=== PATIENT | female | born 1990 | race Caucasian/White ===

== ENCOUNTER 2021-06-20 20:06 | Emergency (ER) | payer OTHER ==
[2021-06-20] MEDS ORDERED: Lactated Ringers 1,000 ML IV ONE (21:06)
[2021-06-20] MEDS ORDERED: Ondansetron 4 MG/2 ML SDV IVPUSH ONE (21:06)
[2021-06-20] MEDS ORDERED: Ketorolac 15 MG/ML SDV IVPUSH ONE (21:06)
[2021-06-20] MEDS ORDERED: Sodium Chloride 0.9% 10 ML Syringe FLUSH PRN (21:06)
--- NOTE | 2021-06-20 21:13 | EDM.PDOC ---
ED HPI GENERAL MEDICAL PROBLEM - General Chief Complaint: Fever Stated Complaint: COVID+/FEVER Time Seen by Provider: 06/20/21 20:11 - History of Present Illness INITIAL COMMENTS - FREE TEXT/NARRATIVE: Patient arrived to ED by private vehicle She tested positive for COVID-19 06/14/2021 Symptoms began about 2 days prior Endorses nausea, vomiting, body aches, cough, fever, intermittent headaches Symptoms including fever have persisted since onset States vomiting and diarrhea have gotten worse Endorses 3 episodes of vomiting today, and diarrhea "all day" Has had difficulty with oral intake, concerned that she is getting dehydrated Complains of feeling generally weak and lightheaded Past couple days has also had intermittent right abdominal pain Denies chest pain or dyspnea Treatments DISTRICT ADMINISTRATOR: Reports: Cold Therapy, Other (see below) Other Treatments DISTRICT ADMINISTRATOR: Advil and Dayquil - Related Data Allergies Allergy/AdvReac Type Severity Reaction Status Date / Time codeine Allergy Severe Nausea and Verified 06/20/21 21:21 Vomiting lisinopril Allergy Severe Facial Verified 06/20/21 21:25 Swelling Home Meds: Home Meds Escitalopram Oxalate [Lexapro] 1 tab PO DAILY 06/20/21 [History] Venlafaxine [Effexor XR] 150 mg PO DAILY 06/20/21 [History] hydroCHLOROthiazide [Hydrochlorothiazide] 1 tab PO DAILY 06/20/21 [History] Prochlorperazine Maleate 10 mg PO Q6H PRN #15 tablet 06/21/21 [Rx] Past Medical History HEENT History: Reports: None Cardiovascular History: Reports: None Respiratory History: Reports: None Gastrointestinal History: Reports: None Genitourinary History: Reports: None CHANGE LEAD History: Reports: None Musculoskeletal History: Reports: None Neurological History: Reports: None Psychiatric History: Reports: None Endocrine/Metabolic History: Reports: None Hematologic History: Reports: None Immunologic History: Reports: None Oncologic (Cancer) History: Reports: None Dermatologic History: Reports: None - Infectious Disease History Infectious Disease History: Reports: Chicken Pox - Past Surgical History Head Surgeries/Procedures: Reports: Other (See Below) HEENT Surgical History: Reports: Oral Surgery, Tonsillectomy GI Surgical History: Reports: None Musculoskeletal Surgical History: Reports: None Social & Family History - Tobacco Use Tobacco Use Status *Q: Never Tobacco User Second Hand Smoke Exposure: No - Caffeine Use Caffeine Use: Reports: None - Alcohol Use Days Per Week of Alcohol Use: 1 Number of Drinks Per Day: 1 Total Drinks Per Week: 1 - Recreational Drug Use Recreational Drug Use: No ED ROS GENERAL - Review of Systems Review Of Systems: See Below Free Text/Narrative/Comment: Constitutional - fever; malaise; anorexia; altered taste/smell Eyes - no eye pain; no visual disturbance ENT - no rhinorrhea; no congestion; no epistaxis Cardiovascular - no chest pain; lightheaded Respiratory - no shortness of breath; cough Gastrointestinal - abdominal pain; nausea; vomiting; diarrhea Genitourinary - no dysuria Musculoskeletal - no neck pain; no back pain; no extremity injury; myalgia Neurological - headache; no speech disturbance; no weakness ED EXAM, GENERAL - Physical Exam Exam: See Below Free Text/Narrative:: Constitutional - awake; alert; mild general distress Head - no facial swelling or weakness Eyes - extra ocular motion intact; conjunctiva normal ENT - no nasal deformity; no epistaxis; normal phonation Neck - no swelling Respiratory - normal respiratory effort; no crackles or wheezing; no stridor; mildly diminished breath sounds right base Cardiovascular - regular rhythm; normal rate; S1; S2; grade 1/6 systolic murmur GI/Abdomen - normal bowel sounds; soft; mild tenderness right mid abdomen; no rebound; no guarding; no mass Musculoskeletal - grossly normal strength and motion; no swelling or deformity Skin - warm; dry Neurologic - normal speech; no weakness Psychiatric - normal mood and affect; memory and attention normal Course - Vital Signs Text/Narrative:: . Considered etiologies included: Vomiting, diarrhea, COVID-19, gastroenteritis, dehydration, metabolic derangement, , UTI Symptoms and examination were discussed Investigations were initiated Empiric treatment was initiated with IV fluid infusion, ondansetron, and ketorolac At reevaluation she felt significantly better Results were discussed, and were unremarkable She tolerated oral fluid intake without further vomiting Symptomatic treatment and isolation recommendations were reviewed Patient was felt to be stable for outpatient follow-up Return precautions were provided Last Recorded V/S: Last Vital Signs Temp 37.0 C 06/20/21 20:38 Pulse 99 06/20/21 20:53 Resp 20 06/20/21 20:53 BP 137/92 H 06/20/21 20:53 Pulse Ox 94 L 06/20/21 20:53 - Orders/Labs/Meds Orders: Active Orders 24 hr Category Date Time Status Peripheral IV Insertion Adult [OM.PC] Stat Oth 06/20/21 21:06 Ordered Labs: Laboratory Tests 06/20/21 06/20/21 06/20/21 Range/Units 21:50 21:50 21:50 WBC 7.19 (3.98-10.04) K/mm3 RBC 4.76 (3.98-5.22) M/mm3 Hgb 14.1 (11.2-15.7) gm/dl Hct 42.7 (34.1-44.9) % MCV 89.7 (79.4-94.8) fl MCH 29.6 (25.6-32.2) pg MCHC 33.0 (32.2-35.5) g/dl RDW Std Deviation 47.7 H (36.4-46.3) fL Plt Count 294 (182-369) K/mm3 MPV 9.8 (9.4-12.3) fl Neut % (Auto) 73.5 H (34.0-71.1) % Lymph % (Auto) 19.9 (19.3-51.7) % Emm[place] % (Auto) 6.1 (4.7-12.5) % Eos % (Auto) 0.1 L (0.7-5.8) Baso % (Auto) 0.1 (0.1-1.2) % Neut # (Auto) 5.28 (1.56-6.13) K/mm3 Lymph # (Auto) 1.43 (1.18-3.74) K/mm3 Emmet # (Auto) 0.44 H (0.24-0.36) K/mm3 Eos # (Auto) 0.01 L (0.04-0.36) K/mm3 Baso # (Auto) 0.01 (0.01-0.08) K/mm3 Manual Slide Review Sodium 142 (136-145) mEq/L Potassium 3.4 L (3.5-5.1) mEq/L Chloride 104 (98-107) mEq/L Carbon Dioxide 25 (21-32) mEq/L Anion Gap 16.4 H (5-15) BUN 7 (7-18) mg/dL Creatinine 0.7 (0.55-1.02) mg/dL Est Cr Clr Drug Dosing 98.09 mL/min Estimated GFR (MDRD) > 60 (>60) mL/min BUN/Creatinine Ratio 10.0 L (14-18) Glucose 110 H (70-99) mg/dL Calcium 8.5 (8.5-10.1) mg/dL Total Bilirubin 0.3 (0.2-1.0) mg/dL AST 90 H (15-37) U/L ALT 197 H (14-59) U/L Alkaline Phosphatase 99 (46-116) U/L Total Protein 7.6 (6.4-8.2) g/dl Albumin 3.5 (3.4-5.0) g/dl Globulin 4.1 gm/dL Albumin/Globulin Ratio 0.9 L (1-2) Urine Color Yellow (Yellow) Urine Appearance Clear (Clear) Urine pH 7.0 (5.0-8.0) Ur Specific [place] 1.025 (1.005-1.030) Urine Protein 1+ H (Negative) Urine Glucose (UA) Negative (Negative) Urine Ketones Negative (Negative) Urine Occult Blood 2+ H (Negative) Urine Nitrite Negative (Negative) Urine Bilirubin Negative (Negative) Urine Urobilinogen 0.2 (0.2-1.0) Ur Leukocyte Esterase Negative (Negative) Urine RBC 10-20 H (0-5) /hpf Urine WBC 0-5 (0-5) /hpf Ur Squamous Epith Cells 0-5 (0-5) /hpf Urine Bacteria Few (FEW) /hpf Urine Mucus Few (FEW) /hpf Urine HCG, Qual (NEGATIVE) 06/20/21 Range/Units 21:50 WBC (3.98-10.04) K/mm3 RBC (3.98-5.22) M/mm3 Hgb (11.2-15.7) gm/dl Hct (34.1-44.9) % MCV (79.4-94.8) fl MCH (25.6-32.2) pg MCHC (32.2-35.5) g/dl RDW Std Deviation (36.4-46.3) fL Plt Count (182-369) K/mm3 MPV (9.4-12.3) fl Neut % (Auto) (34.0-71.1) % Lymph % (Auto) (19.3-51.7) % Emmet % (Auto) (4.7-12.5) % Eos % (Auto) (0.7-5.8) Baso % (Auto) (0.1-1.2) % Neut # (Auto) (1.56-6.13) K/mm3 Lymph # (Auto) (1.18-3.74) K/mm3 Emmet # (Auto) (0.24-0.36) K/mm3 Eos # (Auto) (0.04-0.36) K/mm3 Baso # (Auto) (0.01-0.08) K/mm3 Manual Slide Review Sodium (136-145) mEq/L Potassium (3.5-5.1) mEq/L Chloride (98-107) mEq/L Carbon Dioxide (21-32) mEq/L Anion Gap (5-15) BUN (7-18) mg/dL Creatinine (0.55-1.02) mg/dL Est Cr Clr Drug Dosing mL/min Estimated GFR (MDRD) (>60) mL/min BUN/Creatinine Ratio (14-18) Glucose (70-99) mg/dL Calcium (8.5-10.1) mg/dL Total Bilirubin (0.2-1.0) mg/dL AST (15-37) U/L ALT (14-59) U/L Alkaline Phosphatase (46-116) U/L Total Protein (6.4-8.2) g/dl Albumin (3.4-5.0) g/dl Globulin gm/dL Albumin/Globulin Ratio (1-2) Urine Color (Yellow) Urine Appearance (Clear) Urine pH (5.0-8.0) Ur Specific [place] (1.005-1.030) Urine Protein (Negative) Urine Glucose (UA) (Negative) Urine Ketones (Negative) Urine Occult Blood (Negative) Urine Nitrite (Negative) Urine Bilirubin (Negative) Urine Urobilinogen (0.2-1.0) Ur Leukocyte Esterase (Negative) Urine RBC (0-5) /hpf Urine WBC (0-5) /hpf Ur Squamous Epith Cells (0-5) /hpf Urine Bacteria (FEW) /hpf Urine Mucus (FEW) /hpf Urine HCG, Qual Negative (NEGATIVE) Meds: Medications Discontinued Medications Generic Name Dose Route Start Last Admin Trade Name Freq PRN Reason Stop Dose Admin Lactated Ringer's 1,000 mls @ 999 mls/hr 06/20/21 21:06 06/20/21 21:50 Ringers, Lactated IV 06/20/21 22:06 999 mls/hr .BOLUS ONE Administration Ketorolac Tromethamine 15 mg 06/20/21 21:06 06/20/21 21:50 Ketorolac 15 Mg/Ml Sdv IVPUSH 06/20/21 21:07 15 mg ONETIME ONE Administration Ondansetron HCl 4 mg 06/20/21 21:06 06/20/21 21:50 Ondansetron 4 Mg/2 Ml Sdv IVPUSH 06/20/21 21:07 4 mg ONETIME ONE Administration Sodium Chloride 10 ml 06/20/21 21:06 06/20/21 21:51 Sodium Chloride 0.9% 10 Ml Syringe FLUSH 10 ml ASDIRECTED PRN Administration Keep Vein Open Departure - Departure Time of Disposition: 00:40 Disposition: Home, Self-Care 01 Clinical Impression: COVID-19 virus infection, Gastroenteritis - Discharge Information *PRESCRIPTION DRUG MONITORING PROGRAM REVIEWED*: Not Applicable *COPY OF PRESCRIPTION DRUG MONITORING REPORT IN PATIENT JOSE LUIS: Not Applicable Prescriptions: Prochlorperazine Maleate 10 mg PO Q6H PRN #15 tablet PRN Reason: Nausea or GI distress Instructions: COVID-19: What to Do if You Are Sick - [facility] (10/28/2020) Referrals: Nataliia Eaton PA-C [Primary Care Provider] - Forms: ED Department Discharge Additional Instructions: Continue self-isolation for COVID-19 until: - symptoms are improving and fever has been absent for 48 hours - and at least 10 days have passed since symptoms began Return if condition worsens May resume general activity and light diet as tolerated If vomiting occurs, stop all intake for 30-60 minutes, then resume clear liquid sips, 2-3 every 10-15 minutes, and advance slowly as tolerated Continue usual medications May use PROCHLORPERAZINE as prescribed, as needed for nausea/vomiting May take LOPERAMIDE (Imodium) as needed for diarrhea, per product instructions Follow-up with primary care provider is recommended Sepsis Event Note (ED) - Evaluation Sepsis Screening Result: No Definite Risk - Focused Exam Vital Signs: Vital Signs Temp Pulse Pulse Resp BP Pulse Ox 06/20/21 20:53 99 20 137/92 H 94 L 06/20/21 20:38 37.0 C 97 97 18 144/91 H 93 L - My Orders Last 24 Hours: My Active Orders 06/20/21 21:06 Peripheral IV Insertion Adult [OM.PC] Stat - Assessment/Plan Last 24 Hours: My Active Orders 06/20/21 21:06 Peripheral IV Insertion Adult [OM.PC] Stat
== END 2021-06-21 00:56 | disposition home or self-care (01) ==
LOC: JD.ED 20:06
DX: U07.1 COVID-19 (principal); K52.9 Noninfective gastroenteritis and colitis, unspecified; Z88.5 Allergy status to narcotic agent; Z88.8 Allergy status to other drugs, medicaments and biological substances
CPT/HCPCS: 36415; 80053; 81001; 81025; 85025; 96374; 96375; 99284; J1885; J2405; J7120

== ENCOUNTER 2021-12-27 16:43 | Emergency (ER) | payer SELFPAY ==
[2021-12-27] MEDS ORDERED: LORazepam 2 MG/ML SDV IVPUSH ONE (17:08)
[2021-12-27] MEDS ORDERED: Sodium Chloride 0.9% 10 ML Syringe FLUSH PRN (17:08)
[2021-12-27] MEDS ORDERED: Alum Hydrox/Mag Hydrox/Simeth 30 ML, Lidocaine 2% 15 ML PO ONE ×2 (18:22)
== END 2021-12-27 19:23 | disposition home or self-care (01) ==
LOC: JD.ED 16:43
DX: R07.89 Other chest pain (principal); I10 Essential (primary) hypertension; E66.9 Obesity, unspecified; Z68.35 Body mass index [BMI] 35.0-35.9, adult; Z88.5 Allergy status to narcotic agent; Z88.8 Allergy status to other drugs, medicaments and biological substances
CPT/HCPCS: 36415; 71045; 80053; 84484; 85025; 85379; 93005; 96374; 99285; A9270; J2060; 93010

== ENCOUNTER 2022-04-10 13:16 | Emergency (ER) | payer BC ==
[2022-04-10] MEDS ORDERED: Sodium Chloride 0.9% 10 ML Syringe FLUSH PRN (13:50)
[2022-04-10] MEDS ORDERED: Sodium Chloride 0.9% 1,000 ML IV SCH (14:00)
[2022-04-10] MEDS ORDERED: Iopamidol 612 MG/ML 100 ML Bottle IVPUSH ONE (14:27)
[2022-04-10] MEDS: Sodium Chloride 0.9% 10 ML Syringe FLUSH PRN ×2 (14:47→15:02)
[2022-04-10 15:08] LABS: ESTIMATED GFR > 60 mL/min (>60)
== END 2022-04-10 16:33 | disposition home or self-care (01) ==
LOC: JD.ED 13:16
DX: N83.202 Unspecified ovarian cyst, left side (principal); I10 Essential (primary) hypertension; E66.9 Obesity, unspecified; Z68.30 Body mass index [BMI] 30.0-30.9, adult; Z88.5 Allergy status to narcotic agent; Z88.8 Allergy status to other drugs, medicaments and biological substances; Z79.899 Other long term (current) drug therapy; Z86.16 Personal history of COVID-19
CPT/HCPCS: 36415; 74177; 80053; 81001; 81025; 83690; 85025; 86140; 96360; 99284; J3490; J7030; Q9967